=== PATIENT | male | born 1955 | race Two or more races ===

== ENCOUNTER 2017-04-17 11:25 | Outpatient (CLI) | payer OTHER | END 2017-04-17 11:26 | disposition home or self-care (01) | LOC: SC 11:25 | PROVIDERS: ATTEND Internal Medicine Pulmonary Disease | DX: G47.33 Obstructive sleep apnea (adult) (pediatric) (principal) | CPT/HCPCS: 99203; 99212 ==

== ENCOUNTER 2017-05-22 21:46 | Outpatient (CLI) | payer OTHER | END 2017-05-22 21:47 | disposition home or self-care (01) | LOC: SC 21:46 | PROVIDERS: ATTEND Internal Medicine Pulmonary Disease | DX: G47.33 Obstructive sleep apnea (adult) (pediatric) (principal); Z68.29 Body mass index [BMI] 29.0-29.9, adult | CPT/HCPCS: 95810 ==

== ENCOUNTER 2017-06-10 13:45 | Outpatient (CLI) | payer OTHER | END 2017-06-10 13:46 | disposition home or self-care (01) | LOC: SC 13:45 | PROVIDERS: ATTEND Nurse Practitioner Family | DX: G47.33 Obstructive sleep apnea (adult) (pediatric) (principal) | CPT/HCPCS: 99212; 99214 ==

== ENCOUNTER 2017-07-15 08:34 | Outpatient (CLI) | payer OTHER | END 2017-07-15 08:35 | disposition home or self-care (01) | LOC: SC 08:34 | PROVIDERS: ATTEND Nurse Practitioner Family | DX: G47.33 Obstructive sleep apnea (adult) (pediatric) (principal) | CPT/HCPCS: 99212; 99213 ==